=== PATIENT | female | born 1995 | race Caucasian/White ===

== ENCOUNTER 2023-10-06 11:09 | Emergency (ER) | payer OTHER, SELFPAY ==
[2023-10-06] VITALS (8 sets, daily range): BP systolic 120–158; BP diastolic 67–92; BMI 32.0
[2023-10-06 12:05] LABS: % Basophils 0.3 % (0-2); % Eosinophils 0.5 % (0-6); % Immature Granulocytes 0.2 % (0-0.5); % Lymphocytes 16.1 % (20.5-51.1); % Monocytes 6.5 % (1.7-9.3); % Neutrophils 76.4 % (42.2-75.2); Absolute Eosinophils 0.1 10^3/uL (0-0.7); Absolute Lymphocytes 1.6 10^3/uL (1.2-3.4); Absolute Monocytes 0.6 10^3/uL (0.1-0.6); Absolute Neutrophils 7.6 10^3/uL (1.4-6.5); Hematocrit 40.5 % (37.0-47.0); Hemoglobin 13.6 g/dL (12.0-16.0); Mean Corp Hgb Conc. 33.6 g/dL (33.0-37.0); Mean Corpuscular Hgb 30.9 pg (27.0-31.0); Mean Platelet Volume 10.1 fL (7.4-10.4); Nucleated Red Blood Cells % 0 %; Platelet Count 232 10^3/uL (130-400); Red Cell Dist. Width 11.9 % (11.5-14.5); White Blood Cell Count 9.9 10^3/uL (4.8-10.8)
[2023-10-06 12:18] LABS: ALT (SGPT) 17 U/L (0-35); AST (SGOT) 21 U/L (14-36); Albumin 4.7 g/dl (3.5-5.0); Alkaline Phosphatase 67 U/L (38-126); Blood Urea Nitrogen 9 mg/dl (7-17); Calcium 9.9 mg/dl (8.4-10.2); Carbon Dioxide 25 mmol/L (22-30); Chloride 104 mmol/L (98-107); Estimated Creatinine Clearance > 125 ml/min; Glucose 98 mg/dl (70-99); Lipase 77 U/L (23-300); Potassium 4.1 mmol/L (3.5-5.1); Sodium 138 mmol/L (135-145); Total Bilirubin 0.6 mg/dl (0.2-1.3); Total Protein 7.7 g/dl (6.3-8.2); eGFR > 60.00
[2023-10-06] MEDS: NSS 1000 IV (12:23)
[2023-10-06] MEDS: MORPHINE SULFATE 2 MG IV ×2 (12:24→12:40)
[2023-10-06] MEDS: ZOFRAN 4 MG IV (12:24)
[2023-10-06 12:34] LABS: Beta HCG Quantitative 139.35 mIU/ml
--- NOTE | 2023-10-06 16:45 | ED.GENMED ---
History of Present Illness
General
Chief Complaint: Problems
Source: patient
Exam Limitations: none
Time Seen by Provider: 10/06/23 11:29
Nursing documentation reviewed up to this point in time: agreed with
History of Present Illness
History of Present Illness:
Pt , who is approx 5 wks via LMP, presents to ED sudden onset of abdominal cramping sensation, with vaginal bleeding and vomiting episodes starting this morning. Denies fever/chills. Denies trauma. Denies cp/sob. Denies recent illness.
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 Denies dizziness/weakness.
Review of Systems
Review of Systems
Allergies reviewed?: Yes
All Other Systems: ROS reviewed and negative except as documented in HPI and ROS
Constitutional: Reports no symptoms
ABD/GI: Reports abdominal pain, nausea and vomiting
: Reports bleeding
Musculoskeletal: Reports no symptoms
Skin: Reports no symptoms
Neurological: Reports no symptoms
Phy Exam
Physical Exam
Physical Exam:
Physical Exam
General: moderate painful distress, not acutely ill. afebrile
Head: nc/at. eomi
Neck: supple. normal range of motion
Abdomen: normal bowel sounds. moderate diffuse lower abdominal tenderness to palpation, R>L.
Neuro: alert and oriented. no focal neurological deficits
Skin: no rash
Psychiatric: well kept. interactive and cooperative
Extremities: no edema. no calf tenderness.
Course
Orders/Labs/Results
Orders:
Orders
10/06/23 11:55
Type+Screen Urgent
Beta HCG Quantitative Urgent
Is this a screen?: No
Complete Blood Count/With Diff Urgent
Comprehensive Metabolic Panel Urgent
Lipase Urgent
10/06/23 12:18
0.9% Sodium Chloride 1000 ml [Nss] 1,000 ml IV BOLUS
Morphine Sulfate 2 mg IV NOW STA
Ondansetron Injectable [Zofran] 4 mg IV NOW STA
US W Transvaginal Urgent
Reason For Exam: vaginal bleeding
10/06/23 12:37
Morphine Sulfate 2 mg IV NOW STA
10/06/23 12:39
Morphine Sulfate 2 mg .ROUTE .STK-MED ONE
10/06/23 17:30
Methotrexate Sodium/Pf [Methotrexate] 50 mg Intramuscular Injection 0 ml IM 1730,1731
Abnormal Lab Results
10/06/23
11:55
Absolute Neuts (auto) 7.6 H 10^3/uL
(1.4-6.5)
Neutrophils % 76.4 H %
(42.2-75.2)
Lymphocytes % 16.1 L %
(20.5-51.1)
Creatinine 0.5 L mg/dL
(0.6-1.0)
10/06/23 11:55
10/06/23 11:55
Vital Signs
Initial and Last Documented VS:
Initial Vital Signs
Temp Pulse Resp BP Pulse Ox
98 F 89 16 158/91 98
10/06/23 11:15 10/06/23 11:15 10/06/23 11:15 10/06/23 11:15 10/06/23 11:15
Last Documented Vital Signs
Temp Pulse Resp BP Pulse Ox
98 F 79 11 125/92 97
10/06/23 11:15 10/06/23 14:18 10/06/23 14:18 10/06/23 18:30 10/06/23 18:02
Information
Weeks gestation: N/A
Location: N/A
MDM/Problems Addressed
MDM/Problems Addressed:
History, exam, and pelvic ultrasound concerning for ectopic . Patient evaluated in ED by Dr. 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 After discussion, decision made to administer methotrexate, along with an outpatient follow-up. Patient given
prescription to obtain outpatient beta quant count on day 4 and day 7.
No indication for RhoGam as blood type B+.
*Critical Care Note
Total Time (30-74mins, 75-104mins- exclusive of procedures): Not Applicable
ED Attending Note
-
Portions of this chart may have been created with voice recognition software.� Occasional wrong word or��sound alike� substitutions may have occurred due to the inherent limitations of voice recognition software.
Discharge Plan
Departure
Patient Disposition: Home (Routine Discharge)
Date of Disposition: 10/06/23
Time of Disposition: 17:31
Patient with high blood pressure during this ER visit?: Yes
Discharge Problem:
Ectopic
Instructions: Methotrexate, Ectopic - Discharge instructions
Referrals:
Ban Everett DO [Family Provider] -
Ibeth Dudley MD [Active] -
Activity Restrictions/Additional Instructions:
As discussed, please follow up with referred irish moss gatherer physician for further evaluation and treatment. Please obtain repeat blood work on 10/08 and 10/11 at [facility], so it can be followed up by whom you met in ED today.
Interventions
Interventions:
*Risk Screen - Suicide Last Done: 10/06/23 11:50
*General Assessment Last Done: 10/06/23 11:50
*Neglect/Abuse Screening Last Done: 10/06/23 11:50
ED- Fall Risk Assessment Last Done: 10/06/23 11:50
*ED COVID-19 Vaccine History Last Done: 10/06/23 11:50
*Nursing Disposition Last Done: 10/06/23 19:19
ED-Female Genitourinary Assessment Last Done: 10/06/23 11:50
Discharge Date and Time
Discharge Date/Time: 10/06/23 19:20
Print Language: ETHIOPIAN
[2023-10-06] MEDS: METHOTREXATE 2 MG IM ×2 (18:00→18:01)
== END 2023-10-06 19:20 | disposition home or self-care (01) ==
LOC: EMR 11:09
PROVIDERS: EMERGENCY PHYSICIAN Emergency Medicine; FAMILY PHYSICIAN Family Medicine; OTHER PHYSICIAN Obstetrics & Gynecology
DX: O00.90 Unspecified ectopic pregnancy without intrauterine pregnancy (principal); R03.0 Elevated blood-pressure reading, without diagnosis of hypertension
CPT/HCPCS: 99284; 96374; 96375 ×2; 96361; 76801; 76817; 80053; 83690; 84702; 85025; 86850; 86900; 86901; J9260